=== PATIENT | male | born 1975 | race Caucasian/White ===

== ENCOUNTER 2022-05-16 15:17 | Emergency (ER) | payer SELFPAY ==
--- NOTE | ~2022-05-16 | XR_ITS ---
EXAM: XR lumbar spine min 4V DATE: 05/16/2022 17:12 HISTORY: back pain x 1.5 wks; no injury;radiates down Rt leg . COMPARISON: None available. FINDINGS: 5 nonrib-bearing lumbar-type vertebral bodies. Pedicles intact. Normal vertebral body alig nment. Vertebral body heights preserved. Mild disc height loss at L3-4 and L4-5 marginal osteophytosi s. Normal facets and posterior elements. No fracture or dislocation. IMPRESSION: Mild lower lumbar degenerative disc disease. Reviewed, dictated and finalized at location K.
[2022-05-16 15:33] VITALS: BP 160/91; PULSE 72; RESP 20; TEMP 36.6; O2SAT 100
[2022-05-16] MEDS: IBUPROFEN 600 MG TABLET PO (16:54)
--- NOTE | 2022-05-16 17:26 | ED.BACK ---
HPI - Back Pain/Injury General Chief Complaint: Back Pain/Injury Stated Complaint: back pain Time Seen by Provider: 05/16/22 16:25 Source: RN notes reviewed History of Present Illness HPI Narrative: Patient presents emergency room from home for bilateral lower back pain. Patient states symptoms began approximately 1 week ago. States he works in construction and noticed the pain when he came home 1 night from working he states the pain is progressively worsened with pain in the bilateral lower back that radiates into the buttocks states pain is worse with forward flexion. He denies any direct trauma or injury he denies any fevers or chills abdominal pain numbness or tingling in the extremities bowel or bladder incontinence or any other symptoms. States he does not take anything today for the pain Related Data Allergies Allergy/AdvReac Type Severity Reaction Status Date / Time No Known Allergies Allergy Mild Verified 11/22/07 16:14 Review of Systems Review of Systems: Gen.: Denies fevers or chills ENT: Denies congestion Respiratory: Denies shortness of breath or cough CV: Denies chest pain GI: Denies abdominal pain nausea, emesis or diarrhea denies incontinence Musculoskeletal: See HPI Neuro: Denies numbness, tingling, weakness or focal weakness Skin: Denies rash Except as documented, all other systems reviewed and negative FOR[facility]LY [facility] Past Medical History Medical History (Updated 05/16/22 @ 17:28 by Darnell Walker DO) Patient denies significant medical history Social History Social History (Updated 05/16/22 @ 17:27 by Darnell Walker DO) Smoking status: Never smoker Exam Narrative: APPEARANCE: No acute distress, nontoxic, resting in bed Eyes: EOMI HEENT: Normocephalic, atraumatic, CV: Regular rate and rhythm without murmur RESPIRATORY: No respiratory distress. Clear to auscultation bilaterally. Abdomen: Soft and nontender, no rebound or guarding MUSCULOSKELETAl: Moves all extremities, no clubbing cyanosis or edema Back: No midline lumbar tenderness to palpation or step-off, tender to palpation over bilateral paravertebral muscles L3-5 , pain increased with forward flexion NEURO: Awake and alert. Following commands, speech normal, no focal deficits, muscle strength 5 out of 5 bilateral lower extremities, bilateral patellar reflex 2+ SKIN:: Warm, dry. Normal Color no rash or lesions Course Course Emergency Course: Discussed with patient results of workup and diagnosis. Discussed need for follow-up with primary care, proper use of medication, and reasons to return to the emergency department. Patient understands and agrees to current treatment plan Vital Signs Vital signs: Vital Signs Temperature 97.8 F 05/16/22 15:33 Pulse Rate 72 05/16/22 15:33 Respiratory Rate 20 05/16/22 15:33 Blood Pressure 160/91 H 05/16/22 15:33 Pulse Oximetry 100 05/16/22 15:33 Oxygen Delivery Room Air 05/16/22 15:33 Temperature 97.8 F 05/16/22 15:33 Pulse Rate 72 05/16/22 15:33 Respiratory Rate 20 05/16/22 15:33 Blood Pressure 160/91 H 05/16/22 15:33 Pulse Oximetry 100 05/16/22 15:33 Oxygen Delivery Room Air 05/16/22 15:33 MDM - Back Pain/Injury Imaging Data Radiologist's impression: ITS Impressions Lumbar Spine X-Ray 05/16/22 17:18 IMPRESSION: Mild lower lumbar degenerative disc disease. Discharge Plan Discharge Clinical Impression: Low back pain Patient Disposition: Home, Self-Care Condition: Stable Instructions: Antibiotic Form, Acute Low Back Pain (ED) Additional Instructions: Return for increasing pain numbness or tingling in the extremities bowel or bladder incontinence or any other symptoms of concern Prescriptions: New cyclobenzaprine 10 mg tablet 10 mg PO TID PRN (Reason: muscle spasm) Qty: 8 0RF ibuprofen 600 mg tablet 600 mg PO TID PRN (Reason: pain) Qty: 14 0RF methylprednisolone [Medrol (Chuy)] 4 mg tablets
== END 2022-05-16 17:58 | disposition home or self-care (01) ==
LOC: ANHED 17:45
PROVIDERS: Emergency Provider Emergency Medicine
DX: M54.50 Low back pain, unspecified (principal)
CPT/HCPCS: 72110; 99283; A9270